=== PATIENT | male | born 1985 ===

== ENCOUNTER 2016-10-27 13:40 | Emergency (ER) | payer BC ==
[2016-10-27 14:58] VITALS: BP 157/97
--- NOTE | 2016-10-27 15:10 | UC ---
Throat Pain/Nasal Damion HPI - HPI Summary HPI Summary: patient has had sinus congestion for 2 weeks, started out with a fever which subsided for a few day, but has had a fever fro the past few days and now increased ear pain and sore throat, headache. - History of Current Complaint Chief Complaint: UCRespiratory Stated Complaint: FEVER,SORE THROAT,ACHY Time Seen by Provider: 10/27/16 14:57 Hx Obtained From: Patient Onset/Duration: Sudden Onset, Lasting Days Severity: Moderate Pain Intensity: 6 Pain Scale Used: 0-10 Numeric Cough: None Associated Signs & Symptoms: Positive: Dysphagia, Sinus Discomfort, Nasal Discharge, Fever - Epiglottits Risk Factors Epiglottis Risk Factors: Negative - Allergies/Home Medications Allergies/Adverse Reactions: Allergies Allergy/AdvReac Type Severity Reaction Status Date / Time No Known Allergies Allergy Verified 10/27/16 14:51 Home Medications: Home Medications Pseudoephedrine-Ibuprofen [Advil Cold & Sinus] 1 cap PO ONCE PRN 10/27/16 [ History Confirmed 10/27/16] PMH/Surg Hx/FS Hx/Imm Hx Previously Healthy: Yes - Surgical History Surgical History: Yes Surgery Procedure, Year, and Place: HERNIA REPAIR , WISDOM TEETH EXTRACTED - Family History Known Family History: Positive: Cardiac Disease Negative: Hypertension, Diabetes - Social History Alcohol Use: Occasionally Substance Use Type: None Smoking Status (MU): Never Smoked Tobacco - Immunization History Most Recent Influenza Vaccination: [id number] Review of Systems Constitutional: Fever, Fatigue Skin: Negative Eyes: Negative ENT: Sore Throat, Ear Ache, Nasal Discharge Cardiovascular: Negative Gastrointestinal: Negative Genitourinary: Negative Motor: Negative Neurovascular: Negative Musculoskeletal: Myalgia Neurological: Headache Psychological: Negative All Other Systems Reviewed And Are Negative: Yes Physical Exam Triage Information Reviewed: Yes Appearance: Well-Nourished, Ill-Appearing, Pain Distress Vital Signs: Initial Vital Signs Temp 100.7 F 10/27/16 14:52 Pulse 118 10/27/16 14:52 Resp 20 10/27/16 14:52 BP 157/97 10/27/16 14:52 Pulse Ox 99 10/27/16 14:52 Vital Signs Reviewed: Yes Eye Exam: Normal Eyes: Positive: Conjunctiva Clear ENT: Positive: Pharyngeal erythema, Nasal congestion, Nasal drainage, Muffled/ hoarse voice Dental Exam: Normal Neck exam: Normal Neck: Positive: Supple, Nontender, No Lymphadenopathy Respiratory Exam: Normal Respiratory: Positive: Chest non-tender, Lungs clear, Normal breath sounds Cardiovascular Exam: Normal Cardiovascular: Positive: RRR, No Murmur, Pulses Normal Abdominal Exam: Normal Abdomen Description: Positive: Nontender, No Organomegaly, Soft Bowel Sounds: Positive: Present Musculoskeletal Exam: Normal Musculoskeletal: Positive: Strength Intact, ROM Intact, No Edema Neurological Exam: Normal Neurological: Positive: Alert, Muscle Tone Normal Psychological Exam: Normal Skin Exam: Normal Throat Pain/Nasal Course/Dx - Course Course Of Treatment: history obtained, exam performed, treatd for sinus infection. - Differential Dx/Diagnosis Differential Diagnosis/HQI/PQRI: Otitis Media, Pharyngitis, Sinusitis, URI Provider Diagnoses: sinusitis. fever Discharge - Discharge Plan Condition: Stable Disposition: HOME Prescriptions: Amoxicillin/Clavulanate TAB* [Augmentin TAB 875*] 875 mg PO BID #20 tab Patient Education Materials: Sinusitis (ED) Additional Instructions: take the medication as prescribed. Ibuprofen and tylenol for pain and fever. Increase fluid intake and get plenty of rest.
== END 2016-10-27 15:21 | disposition home or self-care (01) ==
LOC: UCCORT 13:40
DX: J32.9 Chronic sinusitis, unspecified (principal); R50.9 Fever, unspecified
CPT/HCPCS: 99212; G0463

== ENCOUNTER 2017-08-07 10:32 | Emergency (ER) | payer BC ==
[2017-08-07 11:27] VITALS: BP 142/102
--- NOTE | 2017-08-07 11:38 | UC ---
Skin Complaint HPI - HPI Summary HPI Summary: Pt c/o tick bit to right upper inner thigh. pt states that he removed the tick this morning at 4 am. Pt cleaned tick bite area with hydrogen peroxide, triple antibiotic ointment and soap. - History of Current Complaint Chief Complaint: UCSkin Time Seen by Provider: 08/07/17 11:29 Stated Complaint: TICK BITE Hx Obtained From: Patient Onset/Duration: Sudden Onset Skin Exposure Onset/Duration: Hours Ago Timing: Constant Onset Severity: Mild Current Severity: None Location: Discrete Character: Redness Aggravating Factor(s): Nothing Alleviating Factor(s): Nothing Associated Signs & Symptoms: Positive: Bruising Related History: Insect Bite/Sting - Allergy/Home Medications Allergies/Adverse Reactions: Allergies Allergy/AdvReac Type Severity Reaction Status Date / Time No Known Allergies Allergy Verified 08/07/17 11:27 Home Medications: Home Medications Ibuprofen TAB* [Advil TAB*] 400 mg PO ONCE PRN 08/07/17 [History Confirmed 08/07] Review of Systems Constitutional: Negative Skin: Other - tick bite Eyes: Negative ENT: Negative Respiratory: Negative Cardiovascular: Negative Gastrointestinal: Negative Genitourinary: Negative Motor: Negative Neurovascular: Negative Musculoskeletal: Negative Neurological: Negative Psychological: Negative Is Patient Immunocompromised?: No All Other Systems Reviewed And Are Negative: Yes PMH/Surg Hx/FS Hx/Imm Hx Previously Healthy: Yes - Surgical History Surgical History: Yes Surgery Procedure, Year, and Place: HERNIA REPAIR , WISDOM TEETH EXTRACTED - Family History Known Family History: Positive: Cardiac Disease Negative: Hypertension, Diabetes - Social History Occupation: Employed Full-time Lives: With Family Alcohol Use: Occasionally Substance Use Type: None Smoking Status (MU): Never Smoked Tobacco Have You Smoked in the Last Year: No - Immunization History Most Recent Influenza Vaccination: [id number] Physical Exam Triage Information Reviewed: Yes Appearance: Well-Appearing Vital Signs: Initial Vital Signs Temp 97.4 F 08/07/17 11:22 Pulse 96 08/07/17 11:22 Resp 18 08/07/17 11:22 BP 142/102 08/07/17 11:22 Pulse Ox 100 08/07/17 11:22 Vital Signs Reviewed: Yes Eye Exam: Normal ENT Exam: Normal Neck exam: Normal Respiratory Exam: Normal Cardiovascular Exam: Normal Musculoskeletal Exam: Normal Neurological Exam: Normal Psychological Exam: Normal Skin Exam: Other - small, ~5mm diameter area right upper inner thigh bruised area mild erythema Course/Dx - Differential Diagnoses - Skin Complaint Differential Diagnoses: Tick Born Illness - Diagnoses Provider Diagnoses: tick bite. tick removed by pt at home Discharge - Discharge Plan Condition: Stable Disposition: HOME Patient Education Materials: Tick Bite (ED) Referrals: No Primary Care Phys,NOPCP [Primary Care Provider] -
== END 2017-08-07 11:48 | disposition home or self-care (01) ==
LOC: UCCORT 10:32
DX: S70.361A Insect bite (nonvenomous), right thigh, initial encounter (principal); W57.XXXA Bitten or stung by nonvenomous insect and other nonvenomous arthropods, initial encounter
CPT/HCPCS: 99211; G0463

== ENCOUNTER 2018-03-26 21:10 | Emergency (ER) | payer BC ==
[2018-03-26 21:16] VITALS: BP 135/101
--- NOTE | 2018-03-26 21:48 | UC ---
Respiratory Complaint HPI - HPI Summary HPI Summary: Pt c/o sudden onset of cough, chest congestion, chills, chest tightness and fatigue. Pt reports that he "coughed up" mucus that had bright red specks in mucus. Denies fever or chills. Denies SOB, nausea, left arm pain. Pt reports taking pseudofed today at ~ 1500, with tylenol, and vitamin C. - History of Current Complaint Chief Complaint: UCRespiratory Stated Complaint: CHEST CONGESTION, PAIN, PRESSURE, SOB Time Seen by Provider: 03/26/18 21:26 Hx Obtained From: Patient Onset/Duration: Sudden Onset, Other - imporved since onset Severity Initially: Moderate Severity Currently: Mild Pain Intensity: 2 Character: Cough: Productive Aggravating Factors: Nothing Alleviating Factors: Nothing Associated Signs And Symptoms: Positive: Nasal Congestion - Risk Factors Cardiac Risk Factors: Negative Pseudomonas Risk Factors: Negative Tuberculosis Risk Factors: Negative - Allergies/Home Medications Allergies/Adverse Reactions: Allergies Allergy/AdvReac Type Severity Reaction Status Date / Time No Known Allergies Allergy Verified 03/26/18 21:16 PMH/Surg Hx/FS Hx/Imm Hx Previously Healthy: Yes - Surgical History Surgical History: Yes Surgery Procedure, Year, and Place: HERNIA REPAIR , WISDOM TEETH EXTRACTED - Family History Known Family History: Positive: Cardiac Disease Negative: Hypertension, Diabetes - Social History Occupation: Employed Full-time Lives: With Family Alcohol Use: Occasionally Substance Use Type: None Smoking Status (MU): Never Smoked Tobacco Have You Smoked in the Last Year: No - Immunization History Most Recent Influenza Vaccination: [id number] Review of Systems Constitutional: Fatigue Skin: Negative Eyes: Negative ENT: Negative Respiratory: Cough Cardiovascular: Negative Gastrointestinal: Negative Genitourinary: Negative Motor: Negative Neurovascular: Negative Musculoskeletal: Negative Neurological: Negative Psychological: Negative Is Patient Immunocompromised?: No All Other Systems Reviewed And Are Negative: Yes Physical Exam Triage Information Reviewed: Yes Appearance: Well-Appearing Vital Signs: Initial Vital Signs Temp 99.8 F 03/26/18 21:13 Pulse 121 03/26/18 21:13 Resp 18 03/26/18 21:13 BP 135/101 03/26/18 21:13 Pulse Ox 100 03/26/18 21:13 Vital Signs Reviewed: Yes Eye Exam: Normal ENT Exam: Normal Dental Exam: Normal Neck exam: Normal Respiratory Exam: Normal Respiratory: Positive: Lungs clear Cardiovascular Exam: Other Cardiovascular: Positive: Tachycardia Musculoskeletal Exam: Normal Neurological Exam: Normal Psychological Exam: Normal Skin Exam: Normal UC Diagnostic Evaluation - Laboratory O2 Sat by Pulse Oximetry: 100 - Radiology Radiology Interpretation Completed By: Radiologist - IMPRESSION: Respiratory Course/Dx - Course Course Of Treatment: During PE, pt stated that his "eyes" were burning and that he has nasal congestion. Pt denied chest pain or feelings of heart palpitations. - Differential Dx/Diagnosis Differential Diagnosis/HQI/PQRI: Asthma, Pulmonary Embolism - pneumonia, Other - reactive airway alelrgies Provider Diagnoses: allergies. chest pain. tachycardia. cough Discharge - Sign-Out/Discharge Documenting (check all that apply): Discharge/Admit/Transfer - Discharge Plan Condition: Stable Disposition: HOME Prescriptions: Benzonatate CAP* [Tessalon 100 MG CAP*] 100 mg PO Q8H PRN #21 cap PRN Reason: Cough Patient Education Materials: Acute Cough (ED), Tachycardia (ED) Referrals: Sparkle Madison PA [Primary Care Provider] - Additional Instructions: Please follow up with your PCP or return to clinic as needed. Please seek care at the closest emergency department if symptoms worsen. It was noted that youblood pressure was elevated at todays visit. Please follow up with your PCP regarding this finding. - Billing Disposition and Condition Condition: STABLE Disposition: Home
--- NOTE | 2018-03-26 21:59 | RAD ---
HISTORY: cough, sob COMPARISONS: None VIEWS: 4: Frontal dual-energy and lateral views of the chest. FINDINGS: CARDIOMEDIASTINAL SILHOUETTE: The cardiomediastinal silhouette is normal. RADHA: The radha are normal. PLEURA: The costophrenic angles are sharp. No pleural abnormalities are noted. LUNG PARENCHYMA: The lungs are clear. ABDOMEN: The upper abdomen is clear. There is no subphrenic gas. BONES AND SOFT TISSUES: No bone or soft tissue abnormalities are noted. OTHER: None. IMPRESSION: NO ACTIVE CARDIOPULMONARY DISEASE.
[2018-03-26] MEDS ORDERED: LoraTADine TAB(NF) 10 MG TAB (AUTOSUB to CETIRIZINE) PO ONE (22:04)
[2018-03-26] MEDS ORDERED: Benzonatate CAP* 100 MG PO ONE (22:05)
== END 2018-03-26 22:13 | disposition home or self-care (01) ==
LOC: UCCORT 21:10
DX: T78.40XA Allergy, unspecified, initial encounter (principal); R07.9 Chest pain, unspecified; R00.0 Tachycardia, unspecified; R05 Cough
CPT/HCPCS: 71046; 99212; A9270-GY; G0463

== ENCOUNTER 2018-11-03 16:46 | Emergency (ER) | payer BC, OTHER ==
[2018-11-03 17:27] VITALS: BP 131/86
--- NOTE | 2018-11-03 18:09 | UC ---
Upper Extremity HPI - HPI Summary HPI Summary: 33-year-old male comes to clinic today with chief complaint of left elbow injury. Patient was working when he slipped and fell on his left arm. He feels like he jammed and contused his left elbow. Patient is tender to palpation at the elbow. Patient's able to move his fingers with good strength. Mild tingling in the hand but he reports good sensation. Movement of the fingers gives pain in the elbow as does any movement of the elbow. Denies any injury proximal to the elbow. No laceration. - History of Current Complaint Chief Complaint: UCUpperExtremity Stated Complaint: POSSIBLE FX LEFT ARM Time Seen by Provider: 11/03/18 17:53 Pain Intensity: 2 - Allergies/Home Medications Allergies/Adverse Reactions: Allergies Allergy/AdvReac Type Severity Reaction Status Date / Time No Known Allergies Allergy Verified 11/03/18 17:22 Home Medications: Home Medications NK [No Home Medications Reported] 11/03/18 [History Confirmed 11/03/18] PMH/Surg Hx/FS Hx/Imm Hx Previously Healthy: Yes - Surgical History Surgical History: Yes Surgery Procedure, Year, and Place: HERNIA REPAIR , WISDOM TEETH EXTRACTED - Family History Known Family History: Positive: Cardiac Disease Negative: Hypertension, Diabetes - Social History Alcohol Use: Rare Substance Use Type: None Smoking Status (MU): Never Smoked Tobacco Have You Smoked in the Last Year: No - Immunization History Most Recent Influenza Vaccination: [id number] Review of Systems All Other Systems Reviewed And Are Negative: Yes Constitutional: Positive: Negative Skin: Positive: Negative Eyes: Positive: Negative ENT: Positive: Negative Respiratory: Positive: Negative Cardiovascular: Positive: Negative Gastrointestinal: Positive: Negative Motor: Positive: Decreased ROM Neurovascular: Positive: Decreased Sensation Musculoskeletal: Positive: Arthralgia, Decreased ROM Neurological: Positive: Paresthesia Psychological: Positive: Negative Is Patient Immunocompromised?: No Physical Exam Triage Information Reviewed: Yes Appearance: Well-Appearing, Well-Nourished, Pain Distress - MILD WITH PALPATION AND ROM OF LEFT ELBOW Vital Signs: Initial Vital Signs Temp 98 F 11/03/18 17:23 Pulse 109 11/03/18 17:23 Resp 16 11/03/18 17:23 BP 131/86 11/03/18 17:23 Pulse Ox 98 11/03/18 17:23 Vital Signs Reviewed: Yes Eye Exam: Normal Eyes: Positive: Conjunctiva Clear Respiratory: Positive: No respiratory distress Musculoskeletal: Positive: Other: - Patient holds his left arm with elbow at a 90 angle close to his body. Shoulder is nontender to palpation with good range of motion. Fingers and wrists have full range of motion all it does increase the pain in the elbow itself. Movement of the elbow outside of the 90 angle increases the pain in the elbow. Normal radial pulse normal capillary refill. 2 palpation patient reports that he can feel me touching although does feel a slight tingling in the hand. Neurological Exam: Normal Neurological: Positive: Alert, Muscle Tone Normal Psychological Exam: Normal Psychological: Positive: Age Appropriate Behavior Skin Exam: Normal Upper Extremity Course/Dx - Course Course Of Treatment: Order Information: ELBOW LEFT 3+VWS. Accession Number: [id number]. CPT: 36107. INDICATION: Left elbow pain. COMPARISON: None. TECHNIQUE: 4 views left elbow. REPORT: The visualized bones of the left elbow are well corticated and properly aligned. There is. no radiographically apparent fracture or dislocation. There is no radiographic evidence of. pathologic joint effusion. IMPRESSION: No radiographically apparent fracture or dislocation. If the patient's symptoms persist further follow-up imaging is recommended. . < Electronically signed by Sohan Jo MD in [facility]> 11/03/18 [id number]. I discussed the x-rays with the patient. No fracture is seen on the x-ray. Patient's having mild paresthesia into the hand but overall states that he has good sensation and good strength. Normal pulses normal capillary refill also. The overall plan at this time is to limit use of the left arm avoid he did discuss maintaining range of motion of the left arm by not using the sling constantly. Plan will be to follow-up with occupational medicine and/or orthopedics. We discussed if he was getting worse with pain or paresthesias he needs to get reevaluated right away in the emergency department. - Differential Dx/Diagnosis Provider Diagnosis: Left elbow contusion, Sprain of left elbow Discharge - Sign-Out/Discharge Documenting (check all that apply): Patient Departure All imaging exams completed and their final reports reviewed: Yes - Discharge Plan Condition: Stable Disposition: HOME Patient Education Materials: Elbow Sprain (ED), Crush Injury (ED) Forms: *Work Release Referrals: Sparkle Madison PA [Primary Care Provider] - Javi Ortiz MD [Medical Doctor] - Allen Ybarra MD [Medical Doctor] - Additional Instructions: FOLLOW UP WITH OCCUPATIONAL MEDICINE, DR ORTIZ AND ORTHOPEDICS, DR YBARRA. USE THE SLING NEEDED; TAKE THE ARM OUT OF THE SLING WHEN POSSIBLE TO RETAIN RANGE OF MOTION. GET RECHECKED SOONER FOR ANY WORSENING OF YOUR CONDITION; PAIN, WEAKNESS, NUMBNESS OR QUESTIONS OR CONCERNS. - Billing Disposition and Condition Condition: STABLE Disposition: Home
== END 2018-11-03 18:16 | disposition home or self-care (01) ==
LOC: UCCORT 16:46
DX: S53.402A Unspecified sprain of left elbow, initial encounter (principal); S50.02XA Contusion of left elbow, initial encounter; W01.0XXA Fall on same level from slipping, tripping and stumbling without subsequent striking against object, initial encounter; Y92.9 Unspecified place or not applicable
CPT/HCPCS: 99212; G0463